=== PATIENT | female | born 1955 | race Caucasian/White ===

== ENCOUNTER 2017-02-16 13:19 | Observation (INO) | payer OTHER ==
[~2017-02-16] VITALS: Ht 144.8 cm; Wt 66.9 kg
[2017-02-16] MEDS ORDERED: NITROGLYCERIN 2% 1 GM OINT PKT TD STA (15:02)
[2017-02-16] MEDS ORDERED: ASPIRIN 325 MG TAB PO STA (15:02)
--- NOTE | 2017-02-16 15:09 | ERA ---
ER Documentation Chief Complaint Date/Time DATE: 02/16/17 TIME: 15:08 Chief Complaint sent from the clinic for further eval; cp; sob x 3 days HPI This is a 61-year-old female with a history of hypertension, hyperlipidemia, diabetes is exposed to secondhand smoke is complaining of 3 days of substernal chest pressure radiating to the right arm and neck. The patient is short of breath with some mild diaphoresis with chest pressure. The patient says the pain is worse with ambulation. Currently she has no chest pain at all. Her chest pain is moderate in nature typically. ROS All systems reviewed and are negative except as per history of present illness. Medications Home Meds Reported Medications Metformin Hcl* (Metformin Hcl*) 500 Mg Tablet, 500 MG PO WITH BREAKFAST, #30 TAB 02/16/17 Aspirin* (Aspirin* EC) 81 Mg Tablet.dr, 81 MG PO DAILY, TAB 02/16/17 Levothyroxine Sodium* (Levothyroxine Sodium*) 125 Mcg Tablet, 125 MCG PO BEFORE BREAKFAST, #30 TAB 02/16/17 Atorvastatin Calcium* (Atorvastatin Calcium*) 20 Mg Tablet, 20 MG PO QHS, #30 TAB 02/16/17 Benazepril Hcl* (Benazepril Hcl*) 20 Mg Tablet, 20 MG PO DAILY, #30 TAB 02/16/17 Allergies Allergies: Coded Allergies: No Known Allergy (Unverified , 02/16/17) PMhx/Soc History of Surgery: Yes (hysterectomy , thyroidectomy ) Hx Cardiac Disorders: Yes (htn, dm) Hx Psychiatric Problems: No Hx Miscellaneous Medical Probl: No Hx Alcohol Use: No Hx Substance Use: No Hx Tobacco Use: No Smoking Status: Never smoker FmHx Family History: No coronary disease Physical Exam Vitals Vital Signs Date Time Temp Pulse Resp B/P Pulse Ox O2 Delivery O2 Flow Rate FiO2 02/16/17 17:13 57 17 144/92 100 Room Air 02/16/17 15:03 58 17 182/82 99 Room Air 02/16/17 13:50 97.3 63 18 154/85 97 Physical Exam Const: Well-developed, well-nourished Head: Atraumatic, normocephalic Eyes: Normal Conjunctiva, PERRLA, EOMI, normal sclera, no nystagmus ENT: Normal External Ears, Nose and Mouth, moist mucus membranes. Neck: Full range of motion. No meningismus, no lymphadenopathy. Resp: Clear to auscultation bilaterally, no wheezing, rhonchi, rales Cardio: Regular rate and rhythm, no murmurs, S1 S2 present Abd: Soft, non tender x 4, non distended. Normal bowel sounds, no guarding or rebound, no pulsitile abdominal masses or bruits Skin: No petechiae or rashes, no ecchymosis , no maculopapular rash Back: No midline or flank tenderness Ext: No cyanosis, or edema, FROM x 4, normal inspection, neurovascularly intact x 4 Neur: Awake and alert, STR 5/5 x 4, sensation intact x 4, no focal findings, cerebellum intact Psych: Normal Mood and Affect Result Diagram: 02/16/17 1450 02/16/17 1450 Results 24 hrs Laboratory Tests Test 02/16/17 14:50 White Blood Count 7.510^3/ul Red Blood Count 3.6310^6/ul Hemoglobin 11.5g/dl Hematocrit 34.6% Mean Corpuscular Volume 95.3fl Mean Corpuscular Hemoglobin 31.7pg Mean Corpuscular Hemoglobin Concent 33.2g/dl Red Cell Distribution Width 13.2% Platelet Count 08249^3/UL Mean Platelet Volume 9.5fl Neutrophils % 48.4% Lymphocytes % 44.4% Monocytes % 5.6% Eosinophils % 0.9% Basophils % 0.4% Nucleated Red Blood Cells % 0.0/100WBC Neutrophils # (Manual) 3.610^3/ul Lymphocytes # 3.310^3/ul Monocytes # 0.410^3/ul Eosinophils # 0.110^3/ul Basophils # 0.010^3/ul Nucleated Red Blood Cells # 0.010^3/ul Prothrombin Time 12.1Sec Prothrombin Time Ratio 0.9 INR International Normalized Ratio 0.90 Activated Partial Thromboplast Time 33.3Sec Sodium Level 142mmol/L Potassium Level 3.6mmol/L Chloride Level 105mmol/L Carbon Dioxide Level 29mmol/L Anion Gap 12 Blood Urea Nitrogen 8mg/dl Creatinine 0.63mg/dl Glucose Level 102mg/dl Calcium Level 9.3mg/dl Total Bilirubin 0.5mg/dl Direct Bilirubin 0.00mg/dl Indirect Bilirubin 0.5mg/dl Aspartate Amino Transf (AST/SGOT) 32IU/L Alanine Aminotransferase (ALT/SGPT) 41IU/L Alkaline Phosphatase 107IU/L Troponin I < 0.012ng/ml Total Protein 7.9g/dl Albumin 4.4g/dl Globulin 3.50g/dl Albumin/Globulin Ratio 1.25 Current Medications Medications (Trade) Dose Ordered Sig/Kane Route PRN Reason Start Time Stop Time Status Last Admin Dose Admin Aspirin (Aspirin) 325 mg ONCE STAT PO 02/16/17 15:02 02/16/17 15:06 DC Nitroglycerin (Nitroglycerin 2% Oint) 1 inch ONCE STAT TD 02/16/17 15:02 02/16/17 15:06 DC 02/16/17 15:02 Procedures/MDM EKG: Rate/Rhythm: Sinus bradycardia sinus bradycardia QRS, ST, QT: NORMAL NE, QRS, QT] Impression: NORMAL EKG PROCEDURE: XR Chest. CLINICAL INDICATION: chest pain TECHNIQUE: Single frontal view of the chest was obtained COMPARISON: None FINDINGS: The heart and mediastinum are within normal limits. There is a small calcified granuloma in the right lower lobe. The lungs are otherwise clear. There is no pleural effusion or pneumothorax. RPTAT: AA IMPRESSION: No acute disease. .Jw Naylor MD, MD Date Time Electronically viewed and signed by .Jw Naylor MD, MD on 02/16/2017 15: 46 .S/ CC: ALEX MACKEY DO Patient's symptoms are concerning for cardiac cause will require inpatient workup and continuous monitoring. Further w/u for ischemia, arrhythmia, PE or dissection will be deferred to the inpatient team. Accepting Care Team: Current data and ongoing care discussed. Time: Time of admission Primary Provider: XOXOXO Consulting: JeovanyOXOXMo Outstanding Data: none Departure Diagnosis: Primary Impression: Chest pain Qualified Code: R07.9 - Chest pain, unspecified type Condition: Stable ALEX MACKEY DO Feb 16, 2017 15:09
[2017-02-16 15:26] LABS: BASOPHILS % 0.4 % (0.0-2.0); EOSINOPHILS # 0.1 10^3/ul (0.0-0.5); EOSINOPHILS % 0.9 % (0.0-7.0); HEMATOCRIT 34.6 % (42.0-52.0); HEMOGLOBIN 11.5 g/dl (14.0-18.0); LYMPHOCYTES # 3.3 10^3/ul (0.8-2.9); LYMPHOCYTES % 44.4 % (15.0-51.0); MEAN CORPUSCULAR HEMOGLOBIN 31.7 pg (29.0-33.0); MEAN CORPUSCULAR HGB CONC 33.2 g/dl (32.0-37.0); MEAN CORPUSCULAR VOLUME 95.3 fl (82.0-101.0); MEAN PLATELET VOLUME 9.5 fl (7.4-10.4); MONOCYTE # 0.4 10^3/ul (0.3-0.9); MONOCYTES % 5.6 % (0.0-11.0); NEUTROPHILS % 48.4 % (39.0-77.0); PLATELET COUNT 317 10^3/UL (140-415); RED BLOOD COUNT 3.63 10^6/ul (4.70-6.10); RED CELL DISTRIBUTION WIDTH 13.2 % (11.5-14.5); WHITE BLOOD COUNT 7.5 10^3/ul (4.8-10.8)
[2017-02-16] MEDS ORDERED: BENA20TA48 PO (15:29)
[2017-02-16] MEDS ORDERED: LEVO125T75 PO (15:30)
[2017-02-16] MEDS ORDERED: ATOR20TA38 PO (15:30)
[2017-02-16] MEDS ORDERED: METF500T4 PO (15:31)
[2017-02-16] MEDS ORDERED: ASPI-664 PO (15:31)
[2017-02-16 15:41] LABS: INR 0.9; PROTIME 12.1 Sec (12.2-14.2); PT RATIO 0.9
[2017-02-16 15:42] LABS: PARTIAL THROMBOPLASTIN TIME 33.3 Sec (25.0-35.0)
[2017-02-16 15:44] LABS: ALANINE AMINOTRANSFERASE 41 IU/L (13-69); ALBUMIN 4.4 g/dl (3.3-4.9); ALBUMIN/GLOBULIN RATIO 1.25; ALKALINE PHOSPHATASE 107 IU/L (42-121); ANION GAP 12 (8-16); ASPARTATE AMINO TRANSFERASE 32 IU/L (15-46); BILIRUBIN,INDIRECT 0.5 mg/dl (0-1.1); BILIRUBIN,TOTAL 0.5 mg/dl (0.2-1.3); BLOOD UREA NITROGEN 8 mg/dl (7-20); CALCIUM 9.3 mg/dl (8.4-10.2); CARBON DIOXIDE 29 mmol/L (21-31); CHLORIDE 105 mmol/L (97-110); CREATININE 0.63 mg/dl (0.61-1.24); GLUCOSE 102 mg/dl (70-220); POTASSIUM 3.6 mmol/L (3.5-5.1); SODIUM 142 mmol/L (135-144); TOTAL PROTEIN 7.9 g/dl (6.1-8.1)
--- NOTE | 2017-02-16 15:46 | RADRPT ---
PROCEDURE: XR Chest. CLINICAL INDICATION: chest pain TECHNIQUE: Single frontal view of the chest was obtained COMPARISON: None FINDINGS: The heart and mediastinum are within normal limits. There is a small calcified granuloma in the rig ht lower lobe. The lungs are otherwise clear. There is no pleural effusion or pneumothorax. RPTAT: AA IMPRESSION: No acute disease. .Jw Naylor MD, MD Date Time Electronically viewed and signed by .Jw Naylor MD, on 02/16/2017 15:46 .S/
[2017-02-16 16:04] LABS: TROPONIN-I < 0.012 ng/ml (0.00-0.12)
[2017-02-16] MEDS ORDERED: ONDANSETRON 4 MG INJ IV PRN ×2 (18:00→18:30)
[2017-02-16] MEDS ORDERED: ACETAMINOPHEN 325 MG TAB PO PRN ×2 (18:00→18:30)
[2017-02-16] MEDS ORDERED: MAGNESIUM HYDROXIDE 30ML CUP PO PRN (18:30)
[2017-02-16] MEDS ORDERED: NA PHOSPHATE/BIPHOS 133 ML ENEMA PR PRN (18:30)
[2017-02-16] MEDS ORDERED: DOCUSATE SODIUM 100 MG CAP PO PRN (18:30)
[2017-02-16] MEDS ORDERED: NITROGLYCERIN (SL) 0.4 MG TAB SL PRN (18:30)
[2017-02-16] MEDS ORDERED: HYDROCODONE/APAP (5/325) TAB PO ONE (18:30)
[2017-02-16] MEDS ORDERED: hydrALAzine 20 MG INJ IV PRN (18:30)
[2017-02-16] MEDS ORDERED: NACL 0.9% 3 ML SYG IV SCH (18:30)
[2017-02-16] MEDS ORDERED: ALBUTEROL/IPRATROPIUM (NEB) 3 ML AMP HHN PRN (18:30)
[2017-02-16] MEDS ORDERED: morphine 2 MG INJ IV PRN (18:30)
[2017-02-16] MEDS: SOD CHLORIDE 0.45% 1,000 ML IV SCH (18:30)
[2017-02-16] MEDS ORDERED: LORAZEPAM 0.5 MG TAB PO PRN (18:30)
[2017-02-16] MEDS ORDERED: HYDROCODONE/APAP (5/325) TAB PO PRN (18:30)
[2017-02-16] MEDS ORDERED: GLUCOSE GEL 15 GRAM TUBE PO PRN ×2 (19:30)
[2017-02-16] MEDS ORDERED: GLUCAGON 1 MG INJ IM PRN (19:30)
[2017-02-16] MEDS ORDERED: DEXTROSE 50% 50 ML SYRINGE IV PRN ×2 (19:30)
[2017-02-16] MEDS ORDERED: GLUCOSE GEL 15 GRAM TUBE BUCCAL PRN (19:30)
--- NOTE | 2017-02-16 19:49 | HP ---
DATE OF ADMISSION: 02/16/2017 CHIEF COMPLAINT: Chest pain. HISTORY OF PRESENT ILLNESS: This 61-year-old female, past medical history of hypertension, high cholesterol, diabetes, who has been complaining of chest pain for the last 1 week. She took some Advil at home, which helped relieve her symptoms somewhat. Chest pain is described as substernal in nature, radiating to the right arm and to the neck. She had some mild shortness of breath symptoms but no upper or lower GI bleeding. No fevers. No vomiting. No headaches or dizziness or loss of consciousness. She did have some mild chills and some mild nausea symptoms. She went to her primary care doctor today, who told her to come into the ER. She has no prior history of any strokes or heart attacks. She has complained of chest pain in the past off and on but has not sought out medical treatment in the past. When she came in today, she had a systolic blood pressure of 182/82 as well. PAST MEDICAL HISTORY: As above. ALLERGIES: NO KNOWN DRUG ALLERGIES. HOME MEDICATIONS: 1. Atorvastatin 20 mg q.h.s. 2. Benazepril 20 mg daily. 3. Aspirin 81 mg daily. 4. Levothyroxine 125 mcg every morning. 5. Metformin 500 mg q.a.m. PAST SURGICAL HISTORY: She has had thyroidectomy in the past. She has had abscess removal from her abdomen in the past. She has had a hysterectomy in the past. FAMILY HISTORY: Positive for diabetes and hypertension. SOCIAL HISTORY: She has been exposed to secondhand smoke 5 days out of the week for the last 2 years but denies any active smoking herself. No IV drug abuse. No history of any alcohol use. VITAL SIGNS: Today, again T-max 97.3, pulse 57-63, respirations 17, blood pressure is 182-154 systolic over 82-85 diastolic, satting at 97 percent room air. PHYSICAL EXAMINATION: GENERAL: Patient is lying in bed, answers question appropriately. No acute distress. HEENT: Pupils equal, round, react to light. Extraocular muscles intact. NECK: Supple. No thyromegaly. LUNGS: Clear to auscultation bilaterally. CARDIOVASCULAR: S1, S2 heard. No rubs or gallops. ABDOMEN: Soft, nontender, nondistended. Normal bowel sounds. No rebound or guarding. MUSCULOSKELETAL: No lower extremity . NEUROLOGIC: No focal deficits. LABORATORY: Her CBC is completely normal. The comprehensive metabolic panel is normal. Troponin is negative x1. Coags are normal. Chest x-ray shows no acute disease. ASSESSMENT AND PLAN: A 61-year-old female coming in with chest pain symptoms, rule out acute coronary syndrome. 1. Chest pain. Differential diagnosis includes musculoskeletal chest pain versus chest pain secondary to any potential cardiac disease, so we will admit the patient to telemetry floor, trend her troponins q.6 hours x3, put her on nitroglycerin p.r.n., morphine p.r.n., oxygen, and aspirin as well. Continue her statin medication. Check TSH, A1c, and lipid panel. Check 2D echocardiogram as well. 2. Diabetes. Again, check A1c. Put her on sliding scale insulin. 3. High cholesterol. Check lipid panel. Continue statin. 4. Hypertension. Again, patient has some mild hypertensive urgency. Blood pressure presently stable. Continue hydralazine IV p.r.n. and also home blood pressure medicines for now. Dictated By: Sonny Saavedra MD /henrik/amita /Document#: [id number]
[2017-02-16 20:56] LABS: CK-MB 0.67 ng/ml (0.0-2.4)
[2017-02-16] MEDS ORDERED: ATORVASTATIN 20 MG TAB PO SCH (21:00)
[2017-02-16] MEDS: INSULIN ASPART [NOVOLOG] 3 ML PEN SC SCH (21:45)
[2017-02-16] MEDS: HEPARIN 5,000 UNIT/0.5 ML VIAL SC SCH (21:58)
[2017-02-17] VITALS (8 sets, daily range): BP systolic 113–136; BP diastolic 56–73; PULSE 51–57; RESP 17–20; Ht 144.8 cm; Wt 66.9 kg
[2017-02-17 01:32] LABS: CK-MB 0.45 ng/ml (0.0-2.4); TROPONIN-I 0.018 ng/ml (0.00-0.12)
[2017-02-17] MEDS ORDERED: ACCU-CHEK XX SCH (02:00)
[2017-02-17] MEDS ORDERED: PANTOPRAZOLE (EC) 40 MG TAB PO SCH (06:00)
[2017-02-17] MEDS ORDERED: LEVOTHYROXINE 125 MCG TAB PO SCH (07:00)
[2017-02-17 07:07] LABS: BASOPHIL # 0.1 10^3/ul (0.0-0.1); BASOPHILS % 0.7 % (0.0-2.0); EOSINOPHILS # 0.1 10^3/ul (0.0-0.5); EOSINOPHILS % 1.1 % (0.0-7.0); HEMATOCRIT 32.9 % (37.0-47.0); HEMOGLOBIN 10.7 g/dl (12.0-16.0); LYMPHOCYTES # 2.8 10^3/ul (0.8-2.9); LYMPHOCYTES % 38.4 % (15.0-51.0); MEAN CORPUSCULAR HEMOGLOBIN 30.8 pg (29.0-33.0); MEAN CORPUSCULAR HGB CONC 32.5 g/dl (32.0-37.0); MEAN CORPUSCULAR VOLUME 94.8 fl (82.0-101.0); MEAN PLATELET VOLUME 9.7 fl (7.4-10.4); MONOCYTE # 0.5 10^3/ul (0.3-0.9); MONOCYTES % 6.5 % (0.0-11.0); NEUTROPHILS % 53.2 % (39.0-77.0); PLATELET COUNT 286 10^3/UL (140-415); RED BLOOD COUNT 3.47 10^6/ul (4.20-5.40); RED CELL DISTRIBUTION WIDTH 13.2 % (11.5-14.5); WHITE BLOOD COUNT 7.3 10^3/ul (4.8-10.8)
[2017-02-17 07:31] LABS: CHOL/HDL RATIO 6.9 RATIO
[2017-02-17 07:33] LABS: CALCIUM 9.1 mg/dl (8.4-10.2); CREATININE 0.61 mg/dl (0.44-1.00); MAGNESIUM 1.8 mg/dl (1.7-2.5); PHOSPHORUS 4.5 mg/dl (2.5-4.9); POTASSIUM 3.7 mmol/L (3.5-5.1)
[2017-02-17] MEDS: INSULIN ASPART [NOVOLOG] 3 ML PEN SC SCH ×2 (08:00→11:54)
[2017-02-17 08:02] LABS: THYROID STIMULATING HORMONE 17.5 MIU/L (0.465-4.680)
[2017-02-17] MEDS: HEPARIN 5,000 UNIT/0.5 ML VIAL SC SCH (08:40)
[2017-02-17] MEDS: SOD CHLORIDE 0.45% 1,000 ML IV SCH (08:41)
[2017-02-17] MEDS ORDERED: BENAZEPRIL 20 MG TAB PO SCH (09:00)
[2017-02-17] MEDS ORDERED: ASPIRIN (EC) 325 MG TAB PO SCH (09:00)
[2017-02-17] MEDS ORDERED: GLYB5TAB3 PO (13:45)
--- NOTE | 2017-02-17 13:45 | PDOCDIS ---
Discharge Instructions CONDITION Patient Condition: Stable HOME CARE INSTRUCTIONS: Special Diet: Carb controlled diet ACTIVITY: Activity Restrictions: Slowly Increase Activity FOLLOW UP/APPOINTMENTS Follow-up Plan Please take your medications as prescribed, please follow-up with her primary care doctor in the clinic in the next 1-2 weeks. FRED LONDON Feb 17, 2017 13:45
--- NOTE | 2017-02-17 13:57 | DS ---
Date/Time of Note Date/Time of Note DATE: 02/17/17 TIME: 13:54 Discharge Summary Admission/Discharge Info Admit Date/Time Feb 16, 2017 at 18:00 Discharge Date/Time Discharge Diagnosis 1. Chest pain: Possibly muscular skeletal in origin, ruled out for acute coronary syndrome 2. Essential hypertension 3. Hypothyroidism 4. Type 2 diabetes A1c 7.3 5. High cholesterol Patient Condition: Stable Hospital Course 61-year-old female who was admitted with chest pain symptoms, she was admitted to telemetry floor. She ruled out for acute coronary syndrome. Over the course of her hospital stay her A1c was found to be 7.3, she was placed on sliding scale insulin her sugars are stable, her cholesterols found to be elevated as well she was continued on statin which had been recently started as an outpatient 1-2 days prior to this admission. She was also found with high TSH and low T4 levels but had already had adjustments made to her thyroid medications as an outpatient 1-2 days prior to admission so we continued her on those new medications. Over the course of her hospital stay her chest pain symptoms resolved, echocardiogram was performed with the results are still pending by the time of this discharge summary, she was able to ambulate, tolerated p.o. diet, and will be discharged home today improved condition, she has been told to follow-up her echocardiogram results in the next 24 hours by calling the hospital will provide her with a phone number for that. She will follow-up with her primary care doctor in the clinic in the next 1 to 2 weeks. See below for full list of discharge medications. Home Meds Active Scripts Glyburide* (Glyburide*) 5 Mg Tablet, 5 MG PO DAILY, #30 TAB 1 Refill Prov:ARRON LONDONBEATRIS Soler 02/17/17 Reported Medications Aspirin* (Aspirin* EC) 81 Mg Tablet.dr, 81 MG PO DAILY, TAB 02/16/17 Levothyroxine Sodium* (Levothyroxine Sodium*) 125 Mcg Tablet, 125 MCG PO BEFORE BREAKFAST, #30 TAB 02/16/17 Atorvastatin Calcium* (Atorvastatin Calcium*) 20 Mg Tablet, 20 MG PO QHS, #30 TAB 02/16/17 Benazepril Hcl* (Benazepril Hcl*) 20 Mg Tablet, 20 MG PO DAILY, #30 TAB 02/16/17 Discontinued Reported Medications Metformin Hcl* (Metformin Hcl*) 500 Mg Tablet, 500 MG PO WITH BREAKFAST, #30 TAB 02/16/17 Follow-up Plan Please take your medications as prescribed, please follow-up with her primary care doctor in the clinic in the next 1-2 weeks. Primary Care Provider Chelsey Ayers MD Time spent on discharge: > 30 minutes Pending Labs Laboratory Tests Test 02/16/17 14:50 02/16/17 19:50 02/16/17 21:34 02/17/17 00:38 White Blood Count 7.510^3/ul (4.8-10.8) Red Blood Count 3.6310^6/ul (4.70-6.10) Hemoglobin 11.5g/dl (14.0-18.0) Hematocrit 34.6% (42.0-52.0) Mean Corpuscular Volume 95.3fl (82.0-101.0) Mean Corpuscular Hemoglobin 31.7pg (29.0-33.0) Mean Corpuscular Hemoglobin Concent 33.2g/dl (32.0-37.0) Red Cell Distribution Width 13.2% (11.5-14.5) Platelet Count 67268^3/UL (140-415) Mean Platelet Volume 9.5fl (7.4-10.4) Neutrophils % 48.4% (39.0-77.0) Lymphocytes % 44.4% (15.0-51.0) Monocytes % 5.6% (0.0-11.0) Eosinophils % 0.9% (0.0-7.0) Basophils % 0.4% (0.0-2.0) Nucleated Red Blood Cells % 0.0/100WBC (0.0-0.0) Neutrophils # (Manual) 3.610^3/ul (1.7-7.5) Lymphocytes # 3.310^3/ul (0.8-2.9) Monocytes # 0.410^3/ul (0.3-0.9) Eosinophils # 0.110^3/ul (0.0-0.5) Basophils # 0.010^3/ul (0.0-0.1) Nucleated Red Blood Cells # 0.010^3/ul (0.0-0.0) Prothrombin Time 12.1Sec (12.2-14.2) Prothrombin Time Ratio 0.9 INR International Normalized Ratio 0.90 Activated Partial Thromboplast Time 33.3Sec (25.0-35.0) Sodium Level 142mmol/L (135-144) Potassium Level 3.6mmol/L (3.5-5.1) Chloride Level 105mmol/L (97-110) Carbon Dioxide Level 29mmol/L (21-31) Anion Gap 12 (8-16) Blood Urea Nitrogen 8mg/dl (7-20) Creatinine 0.63mg/dl (0.61-1.24) Glucose Level 102mg/dl (70-220) Calcium Level 9.3mg/dl (8.4-10.2) Total Bilirubin 0.5mg/dl (0.2-1.3) Direct Bilirubin 0.00mg/dl (0.00-0.20) Indirect Bilirubin 0.5mg/dl (0-1.1) Aspartate Amino Transf (AST/SGOT) 32IU/L (15-46) Alanine Aminotransferase (ALT/SGPT) 41IU/L (13-69) Alkaline Phosphatase 107IU/L (42-121) Troponin I < 0.012ng/ml (0.00-0.12) < 0.012ng/ml (0.00-0.12) 0.018ng/ml (0.00-0.12) Total Protein 7.9g/dl (6.1-8.1) Albumin 4.4g/dl (3.3-4.9) Globulin 3.50g/dl (1.3-3.2) Albumin/Globulin Ratio 1.25 Creatine Kinase 112IU/L (23-200) 103IU/L (23-200) Creatinine Kinase MB (Mass) 0.67ng/ml (0.0-2.4) 0.45ng/ml (0.0-2.4) Free Thyroxine 0.43ng/dl (0.78-2.44) Bedside Glucose 144mg/dL (70-220) Creatine Kinase Index 0.4 Test 02/17/17 01:43 02/17/17 06:28 02/17/17 08:34 02/17/17 11:44 Bedside Glucose 151mg/dL (70-220) 114mg/dL (70-220) 196mg/dL (70-220) White Blood Count 7.310^3/ul (4.8-10.8) Red Blood Count 3.4710^6/ul (4.20-5.40) Hemoglobin 10.7g/dl (12.0-16.0) Hematocrit 32.9% (37.0-47.0) Mean Corpuscular Volume 94.8fl (82.0-101.0) Mean Corpuscular Hemoglobin 30.8pg (29.0-33.0) Mean Corpuscular Hemoglobin Concent 32.5g/dl (32.0-37.0) Red Cell Distribution Width 13.2% (11.5-14.5) Platelet Count 13598^3/UL (140-415) Mean Platelet Volume 9.7fl (7.4-10.4) Neutrophils % 53.2% (39.0-77.0) Lymphocytes % 38.4% (15.0-51.0) Monocytes % 6.5% (0.0-11.0) Eosinophils % 1.1% (0.0-7.0) Basophils % 0.7% (0.0-2.0) Nucleated Red Blood Cells % 0.0/100WBC (0.0-0.0) Neutrophils # (Manual) 3.910^3/ul (1.7-7.5) Lymphocytes # 2.810^3/ul (0.8-2.9) Monocytes # 0.510^3/ul (0.3-0.9) Eosinophils # 0.110^3/ul (0.0-0.5) Basophils # 0.110^3/ul (0.0-0.1) Nucleated Red Blood Cells # 0.010^3/ul (0.0-0.0) Sodium Level 139mmol/L (135-144) Potassium Level 3.7mmol/L (3.5-5.1) Chloride Level 102mmol/L (97-110) Carbon Dioxide Level 30mmol/L (21-31) Anion Gap 11 (8-16) Blood Urea Nitrogen 10mg/dl (7-20) Creatinine 0.61mg/dl (0.44-1.00) Glucose Level 108mg/dl (70-220) Hemoglobin A1c 7.3% (0-5.9) Calcium Level 9.1mg/dl (8.4-10.2) Phosphorus Level 4.5mg/dl (2.5-4.9) Magnesium Level 1.8mg/dl (1.7-2.5) Triglycerides Level 366mg/dl (0-149) Cholesterol Level 279mg/dl (100-200) LDL Cholesterol, Calculated 166mg/dl HDL Cholesterol 40mg/dl (35-98) Cholesterol/HDL Ratio 6.9RATIO Thyroid Stimulating Hormone (TSH) 17.500MIU/L (0.465-4.680) FRED LONDON. Feb 17, 2017 13:57
--- NOTE | 2017-02-17 16:29 | RADRPT ---
Echocardiogram Report Patient Name: ELADIA NASCIMENTO Gender: Female Date: 1955 Study Date: 17-Feb-2017 [employer] Consultant: Kenrick Swenson [facility] Location: [id number] Ref. Physician: FRED LONDON Quality: Good Procedures: Transthoracic echocardiogram with complete 2D, M-Mode, and doppler examination. Indications: Chest Pain. 2D/M Mode Doppler Measurement Value Normal Ranges Measurement Value Normal Ranges LVIDd 2D 4.6 3.5 - 5.6 cm AV Peak Alonso 1.3 m/sec LVIDs 2D 3.2 2.1 - 4.1 cm AV Peak PG 7.1 mmHg LVPWd 2D 1.2 0.6 - 1.1 cm LVOT Peak Alonso 0.9 m/sec IVSd 2D 1.2 0.6 - 1.1 cm LVOT Peak PG 3.4 mmHg AoR Diam 2D 2.7 2.0 - 3.7 cm MV E Peak Alonso 0.9 m/sec EDV 2D 99.5 cm3 MV A Peak Alonso 0.8 m/sec ESV 2D 32.9 cm3 MV E/A 1.1 LA Dimen 2D 2.9 2.3 - 4.0 cm MV Decel Time 192 msec MV Decel Carlton 4 MV E/A 1.1 TR Peak Alonso 1.6 m/sec TR Peak PG 9.9 mmHg RVSP 13.0 mmHg Findings Left Ventricle: Normal left ventricular systolic function. Normal left ventricular cavity size. Mild concentric left ventricular hypertrophy. Ejection fraction is visually estimated at 6065 %. Tissue Doppler/Mitral Doppler indices are consistent with impaired relaxation (Stage I diastolic dysfunction). Right Ventricle: Normal right ventricular size. Normal right ventricular systolic function. Left Atrium: The left atrium is normal in size. Right Atrium: The right atrium is normal in size. Mitral Valve: Mitral valve leaflets appear mildly thickened. Mild mitral annular calcification. Trace mitral regurgitation. Aortic Valve: Normal appearance of the aortic valve. No significant aortic stenosis or insufficiency. Tricuspid Valve: Normal appearance of the tricuspid valve. Estimated peak PA systolic pressure 13 mmHg. There is trace tricuspid regurgitation. Pulmonic Valve: Normal pulmonic valve appearance. There is trace pulmonic regurgitation. Pericardium: Normal pericardium with no significant pericardial effusion. Aorta: Normal aortic root. IVC: Normal size and normal respiratory collapse consistent with normal right atrial pressure. Conclusions 1.The left ventricle is normal in size and systolic function. 2.Estimated left ventricular ejection fraction of 60-65%. 3.Mild concentric left ventricular hypertrophy. Grade 1 diastolic dysfunction. Electronically Signed By: Brodie Martins 17-Feb-2017 16:29:00 -0700 Patient Name: ELADIA NASCIMENTO Study Date: 17-Feb-2017 [id number]
== END 2017-02-17 14:33 | disposition home or self-care (01) ==
LOC: EDSEX 13:19 → E/R 13:19 → MS4 18:00
PROVIDERS: ADMIT Hospitalist; ATTEND Hospitalist
DX: R07.9 Chest pain, unspecified (principal); I10 Essential (primary) hypertension; E11.9 Type 2 diabetes mellitus without complications; E78.00 Pure hypercholesterolemia, unspecified; E78.5 Hyperlipidemia, unspecified; E03.9 Hypothyroidism, unspecified; Z79.82 Long term (current) use of aspirin; Z79.84 Long term (current) use of oral hypoglycemic drugs; Z90.710 Acquired absence of both cervix and uterus; Z83.3 Family history of diabetes mellitus; Z82.49 Family history of ischemic heart disease and other diseases of the circulatory system
CPT/HCPCS: 36415; 71010; 80048; 80053; 80061; 82550; 82553; 82962; 83036; 83735; 84100; 84439; 84443; 84484; 85025; 85610; 85730; 93005; 93306; 96372; 96374; 97161; J1644; J1815; J2405; Z7500; Z7502; Z7610; G0378